=== PATIENT | male | born 1995 | race African-American/Black ===

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

== ENCOUNTER 2017-01-12 05:02 | Emergency (ER) | payer OTHER | END 2017-01-12 05:27 | disposition home or self-care (01) | LOC: CED 05:02 | DX: L25.5 Unspecified contact dermatitis due to plants, except food (principal); I10 Essential (primary) hypertension; F17.200 Nicotine dependence, unspecified, uncomplicated | CPT/HCPCS: 99282 ==